=== PATIENT | female | born 2000 ===

== ENCOUNTER 2022-02-19 10:42 | Inpatient (IN) ==
[2022-02-19] MEDS ORDERED: METHYLERGONOVINE 0.2 MG/1 ML AMP IM PRN (10:56)
[2022-02-19] MEDS ORDERED: CARBOPROST TROMETHAMINE 250 MCG/ML AMP IM PRN (10:56)
[2022-02-19] MEDS ORDERED: TRANEXAMIC ACID 1,000 MG in SODIUM CHLORIDE 0.9% 100 ML IV PRN (10:56)
[2022-02-19] MEDS ORDERED: MEPERIDINE 50 MG/1 ML VIAL IV PRN (10:56)
[2022-02-19] MEDS ORDERED: miSOPROStoL 200 MCG TABLET RECTAL PRN (10:56)
[2022-02-19] MEDS ORDERED: OXYTOCIN/LR 20 UNIT/1,000 ML BAG IV ONE ×3 (10:56→22:08)
[2022-02-19] MEDS ORDERED: ONDANSETRON 4 MG/2 ML VIAL IV PRN ×2 (10:56→16:24)
[2022-02-19] MEDS ORDERED: BUTORPHANOL 2 MG/ML VIAL IV PRN (10:56)
[2022-02-19] MEDS ORDERED: LACTATED RINGERS 500 ML IV PRN (10:56)
[2022-02-19] MEDS ORDERED: OXYTOCIN/LR 20 UNIT/1,000 ML BAG IV SCH (11:00)
[2022-02-19] MEDS: LACTATED RINGERS 1,000 ML IV SCH ×2 (11:14→16:26)
[2022-02-19 11:19] LABS: Basophils % 0.3 % (0.0-0.8); Eosinophils % 0.1 % (0.00-10.9); Hematocrit 30.8 VOL% (35.7-47.0); Hemoglobin 10.1 GM/DL (12.0-16.0); Immature Granulocytes % 0.4 %; Immature Granulocytes Absolute 0.03 #; Lymphocytes # 1.8 10*3/uL (1.4-4.0); Mean Corpuscular HGB Conc 32.8 GM/DL (32-36); Mean Corpuscular Volume 82.4 FL (87-102); Mean Platelet Volume 11.6 FL (9.6-12.0); Monocytes # 0.5 10*3/uL (0.11-0.8); Monocytes % 6.9 % (1.7-12.7); Neutrophils % 67.3 % (38.7-73.9); Platelet Count 216 T/CUMM (130-400); Red Blood Count 3.74 MC/CUMM (3.8-5.5); Red Cell Distribution Width 15.8 % (9.3-17.3); White Blood Count 7.3 T/CUMM (4-12)
[2022-02-19] MEDS ORDERED: NALOXONE 0.4 MG/ML VIAL IV PRN (16:03)
[2022-02-19] MEDS ORDERED: FAMOTIDINE 20 MG/2 ML VIAL IV ONE (16:03)
[2022-02-19] MEDS ORDERED: ePHEDrine 50 MG/ML VIAL IV PRN (16:03)
[2022-02-19] MEDS ORDERED: CITRIC ACID/SODIUM CITRATE 30 ML UDCUP PO ONE (16:03)
[2022-02-19] MEDS ORDERED: diphenhydrAMINE 50 MG/1 ML VIAL IV PRN ×2 (16:03)
[2022-02-19] MEDS ORDERED: ACETAMINOPHEN 325 MG TABLET PO PRN ×2 (16:24→22:08)
[2022-02-19] MEDS ORDERED: RHO(D) IMMUNE GLOBULIN 300 MCG SYRINGE IM ONE (16:24)
[2022-02-19] MEDS ORDERED: SIMETHICONE CHEW 80 MG TABLET PO PRN (16:24)
[2022-02-19] MEDS ORDERED: MAGNESIUM HYDROXIDE SUSP 30 ML UDCUP PO PRN (16:24)
[2022-02-19] MEDS ORDERED: fentaNYL 2 MCG/ROPIV 0.2% EPID 100 ML EPIDURAL SCH (16:30)
[2022-02-19] MEDS ORDERED: LACTATED RINGERS 1,000 ML IV SCH (16:30)
[2022-02-19 17:39] LABS: Bilirubin,Urine Negative (Negative); Blood, Urine Negative (Negative); Glucose,Urine (UA) Negative (Negative); Ketones,Urine 20 mg/dL (Negative); Mucus,Urine Occasional /LPF (Occasional); Nitrite,Urine Negative (Negative); Protein,Urine Negative (Negative); RBC,Urine <1 /HPF (0-4); Urine Appearance CLEAR (Clear); Urine Color Yellow (Yellow); Urine Urobilinogen < 2.0 eU/dL (<2.0)
[2022-02-19 18:35] LABS: Cord Arterial Blood HCO3 16.8 MMOL/L
[2022-02-19 18:38] LABS: Cord Venous Blood PCO2 47.9 MMHG; Cord Venous Blood PO2 28.5
[2022-02-19 19:04] LABS: Barbiturates Screen,Urine Negative (Negative); Benzodiazepines Screen,Urine Negative (Negative); Cannabinoid Screen,Urine Positive (Negative); Opiate Screen,Urine Negative (Negative); Phencyclidine Screen,Urine Negative (Negative)
[2022-02-19] MEDS ORDERED: DIPH/TET/ACEL PERT BOOSTER VACCINE 0.5 ML VIAL IM ONE (22:08)
[2022-02-19] MEDS ORDERED: BISACODYL 10 MG SUPP RECTAL PRN (22:08)
[2022-02-19] MEDS ORDERED: HYDROCORTISONE 2.5% RECTAL CREAM 30 GM TUBE TOP PRN (22:08)
[2022-02-19] MEDS ORDERED: LANOLIN 50% CREAM 0.3 OZ TUBE TOP PRN (22:08)
[2022-02-19] MEDS ORDERED: BENZOCAINE 20%/MENTHOL 0.5% SPRAY 56 GM CAN TOP PRN (22:08)
[2022-02-19] MEDS ORDERED: MEASLES/MUMPS/RUBELLA VACCINE 0.5 ML VIAL SUBCUT ONE (22:08)
[2022-02-19] MEDS ORDERED: oxyCODONE/ACETAMINOPHEN 5-325 MG TABLET PO PRN ×2 (22:08)
[2022-02-19] MEDS ORDERED: WITCH HAZEL PADS 100/JAR TOP PRN (22:08)
[2022-02-20] MEDS: IBUPROFEN 800 MG TABLET PO PRN ×2 (00:16→19:29)
[2022-02-20 00:40] LABS: Hematocrit 27.2 VOL% (35.7-47.0); Hemoglobin 8.9 GM/DL (12.0-16.0)
[2022-02-20 06:09] LABS: Basophils % 0.2 % (0.0-0.8); Eosinophils % 0.1 % (0.00-10.9); Hematocrit 26.3 VOL% (35.7-47.0); Hemoglobin 8.7 GM/DL (12.0-16.0); Immature Granulocytes % 0.5 %; Immature Granulocytes Absolute 0.05 #; Lymphocytes # 1.8 10*3/uL (1.4-4.0); Lymphocytes % 18.9 % (21.3-54.2); Mean Corpuscular HGB Conc 33.1 GM/DL (32-36); Mean Corpuscular Volume 80.4 FL (87-102); Mean Platelet Volume 11.5 FL (9.6-12.0); Monocytes # 0.6 10*3/uL (0.11-0.8); Monocytes % 6.5 % (1.7-12.7); Neutrophils % 73.8 % (38.7-73.9); Platelet Count 188 T/CUMM (130-400); Red Blood Count 3.27 MC/CUMM (3.8-5.5); Red Cell Distribution Width 15.7 % (9.3-17.3); White Blood Count 9.3 T/CUMM (4-12)
[2022-02-20] MEDS: MULTIVITAMIN (PRENATAL) TABLET PO SCH (09:09)
[2022-02-20] MEDS: FERROUS SULFATE 325 MG TABLET PO SCH ×2 (09:09→20:39)
[2022-02-20] MEDS: DOCUSATE SODIUM 100 MG CAPSULE PO SCH ×2 (09:09→20:39)
[2022-02-21 08:15] VITALS: BP 114/83
[2022-02-21] MEDS: DOCUSATE SODIUM 100 MG CAPSULE PO SCH (09:02)
[2022-02-21] MEDS: MULTIVITAMIN (PRENATAL) TABLET PO SCH (09:02)
[2022-02-21] MEDS: FERROUS SULFATE 325 MG TABLET PO SCH (09:02)
== END 2022-02-21 13:25 | disposition home or self-care (01) | DRG 560 ==
LOC: N.LDOUT 10:42 → N.LD 10:45 → N.OB 21:50
PROVIDERS: ADMIT Obstetrics & Gynecology; ATTEND Obstetrics & Gynecology